=== PATIENT | female | born 1965 | race Caucasian/White ===

== ENCOUNTER 2017-10-22 19:35 | Emergency (ER) | payer MEDICARE, MEDICAID ==
--- NOTE | 2017-10-22 19:47 | Emergency Department Record ---
History of Present Illness - General Chief Complaint: Fever Stated Complaint: FEVER Time Seen by Provider: 10/22/17 19:44 Source: Patient Mode of Arrival: Wheelchair Limitations: No limitations - History of Present Illness Initial Comments: The patient is here due to not feeling well for 4 days. She has had a low grade fever, runny nose, mild nasal congestion and a mild dry cough with a BLAIR. She denies any ST, ear pain, SOB, or sputum production. The patient did not receive a flu shot this year. She denies any nausea, vomiting, diarrhea, dysuria,CP or AP. MD Complaint: Fever, Malaise, Weakness Onset/Timin -: Days(s) Maximum Temperature: 103 F Temperature Source: Oral Associated Symptoms: Chills, Headache, Nasal congestion, Rhinorrhea Treatments Prior to Arrival: Ibuprofen - Related Data Previous Rx's Medication Instructions Recorded Doxycycline Monohydrate [Mondoxyne 100 mg PO BID #20 capsule 10/22/17 Nl] Allergies Allergy/AdvReac Type Severity Reaction Status Date / Time prochlorperazine edisylate Allergy DIZZINESS Verified 10/22/17 19:44 [From Compazine] prochlorperazine maleate Allergy DIZZINESS Verified 10/22/17 19:44 [From Compazine] vancomycin Allergy HIVES Verified 10/22/17 19:44 Travel Screening - Travel/Exposure Within Last 30 Days Have you traveled within the last 30 days?: No - Travel/Exposure Within Last Year Have you traveled outside the [place] in the last year?: No - Additonal Travel Details Have you been exposed to anyone with a communicable illness?: No Review of Systems Constitutional: Reports: Fever, Malaise. Denies: Chills Eyes: Denies: Eye discharge ENT: Reports: Congestion Respiratory: Reports: Cough. Denies: Dyspnea Past Medical History - SOCIAL HISTORY Smoking Status: Former smoker Alcohol Use: Rare Drug Use: None - RESPIRATORY Hx Respiratory Disorders: No - CARDIOVASCULAR Hx Cardio Disorders: Yes Hx Hypertension: Yes Comment:: high cholesterol - NEURO Hx Neuro Disorders: Yes Hx Neuropathy: Yes - GI Hx GI Disorders: No - Hx Genitourinary Disorders: Yes Hx Bladder Problem: Yes - ENDOCRINE Hx Endocrine Disorders: Yes Hx Diabetes: Yes Hx Thyroid Disease: No - MUSCULOSKELETAL Hx Musculoskeletal Disorders: Yes Hx Arthritis: Yes Hx Back Injury: Yes (bulging disk) Hx Fibromyalgia: Yes Hx Osteoporosis: Yes - PSYCH Hx Psych Problems: Yes Hx Depression: Yes - HEMATOLOGY/ONCOLOGY Hx Hematology/Oncology Disorders: No Family Medical History Any Significant Family History?: Yes Hx Cancer: Mother, Brother/Sister Hx Diabetes: Mother, Brother/Sister Hx HTN: Father, Mother Hx Kidney Disease: Father Hx Stroke: Mother Physical Exam - General General Appearance: Alert, Oriented x3, Cooperative, No acute distress - Head Head exam: Atraumatic, Normocephalic, Normal inspection - Eye Eye exam: Normal appearance, PERRL - ENT ENT exam: Normal exam, Mucous membranes moist, Normal external ear exam, Normal orophraynx, TM's normal bilaterally Throat exam: Normal inspection. negative: Tonsillar erythema, Tonsillar exudate - Neck Neck exam: Normal inspection, Full ROM. negative: Tenderness - Respiratory Respiratory exam: Normal lung sounds bilaterally. negative: Respiratory distress - Cardiovascular Cardiovascular Exam: Regular rate, Normal rhythm, Normal heart sounds - GI/Abdominal GI/Abdominal exam: Soft, Normal bowel sounds. negative: Tenderness - Extremities Extremities exam: Normal inspection, Full ROM, Normal capillary refill. negative: Tenderness - Neurological Neurological exam: Alert, Normal gait. negative: Abnormal gait, Motor sensory deficit Course Vital Signs 10/22/17 19:39 Temperature 100.4 F H Pulse Rate 121 H Respiratory 20 Rate Blood Pressure 116/75 Pulse Ox 97 - Reevaluation(s) Reevaluation #1: The patient is doing very well at this time and appears very healthy and nontoxic. Her CXR and lab work do not demonstrate any serious infection. We will discharge the patient on Doxycycline and Tylenol and have her F/U with her PCP next week for recheck. 10/22/17 20:44 10/22/17 20:52 Medical Decision Making - Data Complexity MDM Data: Labs Ordered and/or Reviewed, X-Ray Ordered and/or Reviewed - Lab Data Result diagrams: 10/22/17 20:05 10/22/17 20:05 - Radiology Data Radiology results: Report reviewed (CXR: Neg.) Disposition Disposition: Discharge Clinical Impression: Sinusitis Qualifiers: Sinusitis location: unspecified location Chronicity: acute Recurrence: not specified as recurrent Qualified Code(s): J01.90 - Acute sinusitis, unspecified Disposition: Home, Self-Care Condition: (2) Stable Instructions: Fever in Adults (ED), Rhinosinusitis (ED) Additional Instructions: Please drink plenty of fluids and watch your sugar intake. Please alternate Tylenol with Motrin every 4-6 hours for fever. Please continue the Doxycyline as directed. Follow up with your PCP next week if not better and return to the ER for any worsening symptoms or high fever. Prescriptions: Doxycycline Monohydrate [Mondoxyne Nl] 100 mg PO BID #20 capsule Forms: Patient Portal Access Time of Disposition: 20:49 Quality - Quality Measures Quality Measures: N/A - Blood Pressure Screening View Details: Yes Does Patient Have Any of the Following: No Blood Pressure Classification: Normal BP Reading Systolic Measurement: 116 Diastolic Measurement: 75 Screening for High Blood Pressure: < Normal BP, F/U Not Required > [G8783]
[2017-10-22] MEDS ORDERED: ACETAMINOPHEN 325 MG TAB PO ONE (19:50)
[2017-10-22 20:11] LABS: INFLUENZA A NEGATIVE (NEGATIVE); INFLUENZA B NEGATIVE (NEGATIVE)
[2017-10-22 20:15] LABS: HEMATOCRIT 39.9 % (35.0-47.0); HEMOGLOBIN 12.9 gm/dl (11.6-16.0); MEAN CORPUSCULAR HEMOGLOBIN 27.8 pg (27-33); MEAN CORPUSCULAR HGB CONC 32.3 g/dl (32-36); MEAN PLATELET VOLUME 9.8 fl (7.4-10.4); PLATELET COUNT 215 K/uL (130-400); RED BLOOD COUNT 4.64 M/uL (3.80-5.40); RED CELL DISTRIBUTION WIDTH 14.6 % (11.5-14.5); WHITE BLOOD COUNT W/O DIFF 11.3 K/uL (4.2-12.2)
[2017-10-22] MEDS ORDERED: DOXYCYCLINE HYCLATE 100 MG CAPSULE PO ONE (20:25)
[2017-10-22 20:29] LABS: BLOOD UREA NITROGEN 9 mg/dL (6-20); CREATININE 0.5 mg/dL (0.5-0.9); EST GLOMERULAR FILTRATION RATE > 60 mL/min
[2017-10-22 20:30] LABS: TOTAL PROTEIN 7.4 g/dL (6.6-8.7)
[2017-10-22 20:32] LABS: GLUCOSE,RANDOM 279 mg/dL (74-109)
[2017-10-22 20:35] LABS: ALB/GLOB RATIO 1.1 (1.1-1.8); ALBUMIN 3.8 g/dL (4.0-5.0); ALKALINE PHOSPHATASE 102 U/L (35-104); ALT/SGPT 31 U/L (<33); AST/SGOT 29 U/L (10.0-35.0)
--- NOTE | 2017-10-23 08:28 | RADIOLOGY REPORT ---
EXAM: CHEST 2 VIEWS HISTORY: FEVER FOR THE PAST FOUR DAYS WITH GREENISH NASAL DISCHARGE AND SINUS PRESSURE. TECHNIQUE: PA and lateral upright views of the chest were obtained. COMPARISON: July 08, 2010. FINDINGS: The heart, mediastinum, and pulmonary vasculature are normal. The lungs are clear. There is no pneumothorax or effusion. The bones appear intact. IMPRESSION: NO ACUTE CHEST PATHOLOGY. JOB NUMBER: [id number] MTDD
== END 2017-10-22 20:56 | disposition home or self-care (01) ==
LOC: ER 19:35
DX: J01.90 Acute sinusitis, unspecified (principal); R50.81 Fever presenting with conditions classified elsewhere; R05 Cough; R51 Headache; R53.1 Weakness
CPT/HCPCS: 71020; 80053; 85027; 86140; 87400; 99283; 99284

== ENCOUNTER 2017-11-22 12:16 | Emergency (ER) | payer MEDICARE, MEDICAID ==
--- NOTE | 2017-11-22 13:47 | Emergency Department Record ---
History of Present Illness - General Chief Complaint: Back Pain/Injury Stated Complaint: BACK PAIN Time Seen by Provider: 11/22/17 13:25 Source: Patient - History of Present Illness Initial Comments: The patient states her chronic low back pain has been increased in severity for the past two weeks. She has known L4-L5 disc herniation which has been for years , for which she has used a cane for ambulation routinely. Her left leg chronically feels weak, her neuropathy in both legs is chronic, and her ulcers on both big toes which have been cared for at wound clinics, have been shrinking in size and she feels are close to resolving. The patient has been having a fever also for the past 1 week. She states she had been taking antibiotics which finished about 2 weeks ago which were for sinusitis. She started with thick green nasal discharge which resolved while on the antibiotics , and then the green thick sputum returned after the antibiotics stopped. Her cheeks bilaterally have uncomfortable pressure along with post-nasal drip. She denies sore throat, cough, cp, liu, ap, or bales. She has had no procedures in her low back, the last recent MRI was a few years ago. She is seeing Carlene GARCIA here and is trying to get a repeat MRI and an appointment with the neurologist. She states she does not want surgery on her back because disc herniation runs in her family and they all have had multiple surgeries which she wants to avoid. She has been taking tylenol and ibuprofen for the pain, but has not had ibuprofen in over 8 hours. MD Complaint: Back pain Onset/Timin -: Week(s) Similar Symptoms Previously: Yes Radiation: None Improves With: None Worsens With: Deep breaths/cough, Movement, Walking, Other Context: Unknown Associated Symptoms: Difficulty walking, Other Treatments Prior to Arrival: Acetaminophen Treatment Prior to Arrival Comment:: 1500mg - Related Data Previous Rx's Medication Instructions Recorded Doxycycline Monohydrate [Mondoxyne 100 mg PO BID #20 capsule 10/22/17 Nl] Diazepam [Valium] 10 mg PO TID #20 tab 11/22/17 Levofloxacin [Levaquin Tab] 500 mg PO DAILY #21 tab 11/22/17 Tramadol HCl [Ultram] 50 mg PO Q8H #20 tab 11/22/17 Allergies Allergy/AdvReac Type Severity Reaction Status Date / Time prochlorperazine edisylate Allergy DIZZINESS Verified 11/22/17 12:52 [From Compazine] prochlorperazine maleate Allergy DIZZINESS Verified 11/22/17 12:52 [From Compazine] vancomycin Allergy HIVES Verified 11/22/17 12:52 Travel Screening - Travel/Exposure Within Last 30 Days Have you traveled within the last 30 days?: No - Travel/Exposure Within Last Year Have you traveled outside the [place] in the last year?: No - Additonal Travel Details Have you been exposed to anyone with a communicable illness?: No Review of Systems Reviewed: No additional complaints except as noted below Constitutional: Reports: As per HPI. Denies: Chills, Fever, Malaise, Night sweats, Weakness, Weight change Eyes: Reports: As per HPI. Denies: Eye discharge, Eye pain, Photophobia, Vision change ENT: Reports: As per HPI. Denies: Congestion, Dental pain, Ear pain, Epistaxis , Hearing loss, Throat pain Respiratory: Reports: As per HPI. Denies: Cough, Dyspnea, Hemoptysis, Stridor, Wheezes Cardiovascular: Reports: As per HPI. Denies: Arrhythmia, Chest pain, Dyspnea on exertion, Edema, Murmurs, Orthopnea, Palpitations, Paroxysmal nocturnal dyspnea, Rheumatic Fever, Syncope Endocrine: Reports: As per HPI. Denies: Fatigue, Heat or cold intolerance, Polydipsia, Polyuria Gastrointestinal: Reports: As per HPI. Denies: Abdominal pain, Constipation, Diarrhea, Hematemesis, Hematochezia, Melena, Nausea, Vomiting Genitourinary: Reports: As per HPI. Denies: Abnormal menses, Discharge, Dyspareunia, Dysuria, Frequency, Hematuria, Incontinence, Retention, Urgency Musculoskeletal: Reports: As per HPI. Denies: Arthralgia, Back pain, Gout, Joint swelling, Myalgia, Neck pain Skin: Reports: As per HPI. Denies: Bruising, Change in color, Change in hair/ nails, Lesions, Pruritus, Rash Neurological: Reports: As per HPI. Denies: Abnormal gait, Confusion, Headache, Numbness, Paresthesias, Seizure, Tingling, Tremors, Vertigo, Weakness Psychiatric: Reports: As per HPI. Denies: Anxiety, Auditory hallucinations, Depression, Homicidal thoughts, Suicidal thoughts, Visual hallucinations Hematological/Lymphatic: Reports: As per HPI. Denies: Anemia, Blood Clots, Easy bleeding, Easy bruising, Swollen glands Past Medical History - SOCIAL HISTORY Smoking Status: Former smoker Alcohol Use: None Drug Use: None - RESPIRATORY Hx Respiratory Disorders: No - CARDIOVASCULAR Hx Cardio Disorders: Yes Hx Hypertension: Yes Comment:: high cholesterol - NEURO Hx Neuro Disorders: Yes Hx Neuropathy: Yes - GI Hx GI Disorders: No - Hx Genitourinary Disorders: Yes Hx Bladder Problem: Yes - ENDOCRINE Hx Endocrine Disorders: Yes Hx Diabetes: Yes Hx Thyroid Disease: No - MUSCULOSKELETAL Hx Musculoskeletal Disorders: Yes Hx Arthritis: Yes Hx Back Injury: Yes (bulging disk) Hx Fibromyalgia: Yes Hx Osteoporosis: Yes - PSYCH Hx Psych Problems: Yes Hx Depression: Yes - HEMATOLOGY/ONCOLOGY Hx Hematology/Oncology Disorders: No Family Medical History Any Significant Family History?: No Hx Cancer: Mother, Brother/Sister Hx Diabetes: Mother, Brother/Sister Hx HTN: Father, Mother Hx Kidney Disease: Father Hx Stroke: Mother Physical Exam - General General Appearance: Alert, Oriented x3, Cooperative, Moderate distress, Other ( morbidly obese ) - Head Head exam: Normal inspection, Other (pressure over maxillary sinuses on percussion) - Eye Eye exam: Normal appearance, PERRL Pupils: Normal accommodation - ENT ENT exam: Normal exam, Mucous membranes moist, Normal external ear exam, Normal orophraynx, TM's normal bilaterally Ear exam: Normal external inspection. negative: External canal tenderness Nasal Exam: Normal inspection, Sinus tenderness (bilateral maxillary). negative : Discharge Mouth exam: Normal external inspection, Tongue normal Teeth exam: Normal inspection. negative: Dental caries Throat exam: Normal inspection. negative: Tonsillar erythema, Tonsillar exudate - Neck Neck exam: Normal inspection, Full ROM. negative: Tenderness - Respiratory Respiratory exam: Normal lung sounds bilaterally. negative: Respiratory distress - Cardiovascular Cardiovascular Exam: Regular rate, Normal rhythm, Normal heart sounds - GI/Abdominal GI/Abdominal exam: Soft, Normal bowel sounds. negative: Tenderness - Rectal Rectal exam: Deferred - exam: Deferred - Extremities Extremities exam: Normal inspection, Full ROM, Normal capillary refill. negative: Tenderness - Back Back exam: Reports: Normal inspection, Full ROM, Tenderness (tender at L4L5 level on palpation ). Denies: CVA tenderness (R), CVA tenderness (L), Muscle spasm, Rash noted - Neurological Neurological exam: Alert, CN II-XII intact, Normal gait, Oriented X3, Reflexes normal, Other (neuropathy below knees bilateral and chronic.) - Psychiatric Psychiatric exam: Normal affect, Normal mood - Skin Skin exam: Dry, Intact, Normal color, Warm Course Vital Signs 11/22/17 12:34 Temperature 98.1 F Pulse Rate 97 H Respiratory 20 Rate Blood Pressure 108/70 Pulse Ox 70 L - Reevaluation(s) Reevaluation #1: Not much improvement after norflex and toradol injection. Patient will try valium at bedtime to help with sleep, spasm, and ultram for pain. She was cautioned about falling while on pain meds and muscle relaxants. She will be given levaquin for sinus infection and equivocally abnormal UA. She has follow up with Carlene GARCIA in office 11/22/17 14:40 Medical Decision Making - Management Options MDM Management: No Additional Work-up Planned - Data Complexity MDM Data: Labs Ordered and/or Reviewed Disposition Disposition: Discharge Clinical Impression: Sinusitis, acute, maxillary Qualifiers: Recurrence: recurrent Qualified Code(s): J01.01 - Acute recurrent maxillary sinusitis Chronic low back pain with left-sided sciatica Qualifiers: Back pain laterality: left Qualified Code(s): M54.42 - Lumbago with sciatica, left side; G89.29 - Other chronic pain; G89.29 - Other chronic pain Disposition: Home, Self-Care Condition: (2) Stable Instructions: Low Back Strain (ED), Chronic Back Pain (ED), Sinusitis (ED) Additional Instructions: Continue present meds as before. Take antibiotics as directed untll gone. Valium as directed IF NEEDED for muscle spasm pain. May cause drowsiness. Ultram as directed IF NEEDED for pain. Follow up with JOSE Richardson as instructed. Prescriptions: Diazepam [Valium] 10 mg PO TID #20 tab Levofloxacin [Levaquin Tab] 500 mg PO DAILY #21 tab Tramadol HCl [Ultram] 50 mg PO Q8H #20 tab Quality - Quality Measures Quality Measures: N/A - Blood Pressure Screening Does Patient Have Any of the Following: No Blood Pressure Classification: Normal BP Reading Systolic Measurement: 108 Diastolic Measurement: 70 Screening for High Blood Pressure: < Normal BP, F/U Not Required > [G8783]
[2017-11-22] MEDS ORDERED: KETOROLAC 30 MG/ML VIAL IM ONE (13:58)
[2017-11-22] MEDS ORDERED: ORPHENADRINE CITRATE 60MG/2ML VIAL IM ONE (13:58)
[2017-11-22 14:01] LABS: URINE APPEARANCE CLEAR; URINE BILIRUBIN NEGATIVE (NEGATIVE); URINE BLOOD NEGATIVE (NEGATIVE); URINE COLOR YELLOW; URINE GLUCOSE (UA) NEGATIVE (NEGATIVE); URINE KETONE NEGATIVE (NEGATIVE); URINE LEUKOCYTE ESTERASE TRACE (NEGATIVE); URINE NITRITE NEGATIVE (NEGATIVE); URINE PROTEIN NEGATIVE (NEGATIVE); URINE UROBILINOGEN 0.2 E.U./dL (0.20 - 1.00)
[2017-11-22 14:11] LABS: AMPHETAMINE SCREEN URINE NOT DETECTED; BARBITURATE SCREEN URINE NOT DETECTED; BENZODIAZEPINE SCREEN URINE NOT DETECTED; COCAINE SCREEN URINE NOT DETECTED; METHADONE SCREEN URINE NOT DETECTED; METHAMPHETAMINE SCREEN NOT DETECTED; OPIATE SCREEN URINE NOT DETECTED; OXYCODONE SCREEN URINE NOT DETECTED; PHENCYCLIDINE SCREEN URINE NOT DETECTED; PROPOXYPHENE SCREEN URINE NOT DETECTED; THC SCREEN URINE NOT DETECTED; TRICYCLIC ANTIDEPRESSANT SCRN DETECTED; URINE BACTERIA FEW; URINE RBC 0 - 2 (NONE SEEN); URINE WBC 0 - 2 (0-2/hpf)
== END 2017-11-22 15:48 | disposition home or self-care (01) ==
LOC: ER 12:16
DX: G89.29 Other chronic pain (principal); M51.17 Intervertebral disc disorders with radiculopathy, lumbosacral region; J01.01 Acute recurrent maxillary sinusitis; R26.2 Difficulty in walking, not elsewhere classified; E11.9 Type 2 diabetes mellitus without complications; I10 Essential (primary) hypertension; Z79.899 Other long term (current) drug therapy; Z87.891 Personal history of nicotine dependence
CPT/HCPCS: 80053; 80061; 80305; 81001; 82306; 84443; 96372; 99283; 99284; J1885; J2360

== ENCOUNTER 2018-01-27 08:02 | Emergency (ER) | payer MEDICARE, MEDICAID ==
[2018-01-27] MEDS ORDERED: MORPHINE SULFATE 5 MG/ML PFS IVP ONE (08:14)
[2018-01-27] MEDS ORDERED: 0.9 % SODIUM CHLORIDE 1000ML 1,000 ML IV ONE (08:14)
--- NOTE | 2018-01-27 08:16 | Emergency Department Record ---
History of Present Illness - General Chief Complaint: Fall Injury Stated Complaint: FALL/BACK PAIN Time Seen by Provider: 01/27/18 08:07 Source: Patient Mode of Arrival: Ambulatory Limitations: No limitations - History of Present Illness Initial Comments: 52 yo female presents after a fall. The patient got up to go the bathroom this morning. She states her R leg gave out on her and she fell. She complains of pain in the lumbar area and weakness in the legs. She has worsening chronic lumbar pain with known significant disc disease. She is scheduled for an MRI in a week and a follow up with a NS (Marly). She has chronic neuropathy. No head or neck injury today. PCP is Carlene An. MRI 04/2014: 1. Large Central disc extrusion T12/L1 extending 10mm cephalad, severe central canal stenosis with the thecal sac only measuring 3mm in AP with significant flattening of the distal cord/cauda equina. Neurosurgical consultation recommended. 2. severe central canal stenosis at L2/3 and L3/4 3. L4/5 moderal canal stenosis 4. L5/S1 disc protrusion effaces L lateral recess displaces left S1 nerve root No history of back surgery or neurosurgical follow up She does report urinary incontinence that has been ongoing for about 2 years and is unchanged She reports the neuropathy of the feet has been several years as well The drop foot has been present on the right as well since 2013 She uses a cane on a good day and a wheelie walker on a bad day. She does report some subjective fevers in the last few days. MD Complaint: Fall -: Hour(s) (3) Fall From: Standing When Fall Occurred: 1-3 hours [employer] Fall Witnessed: No Place Fall Occurred: Home Loss of Consciousness: None Prolonged Down Time?: No Symptoms Prior to Fall: Other (Leg gave) - Related Data Home Medications Medication Instructions Recorded Confirmed Last Taken Ergocalciferol (Vitamin D2) 50,000 unit PO WEEKLY 01/27/18 01/27/18 1 Day Ago [Vitamin D2] ~01/26/18 Flaxseed Oil 1,000 mg PO DAILY 01/27/18 01/27/18 1 Day Ago ~01/26/18 Multivitamin [Multiple Vitamins] 1 each PO DAILY 01/27/18 01/27/18 1 Day Ago ~01/26/18 Niacin 500 mg PO DAILY 01/27/18 01/27/18 1 Day Ago ~01/26/18 [place]-3/Dha/Epa/Fish Oil [Fish Oil 1 each PO DAILY 01/27/18 01/27/18 1 Day Ago 1,000 mg Softgel] ~01/26/18 Allergies Allergy/AdvReac Type Severity Reaction Status Date / Time prochlorperazine edisylate Allergy DIZZINESS Verified 01/27/18 08:08 [From Compazine] prochlorperazine maleate Allergy DIZZINESS Verified 01/27/18 08:08 [From Compazine] vancomycin Allergy HIVES Verified 01/27/18 08:08 Review of Systems Constitutional: Reports: Chills, Fever (subjective on off a couple days). Denies: Malaise, Night sweats, Weakness Eyes: Denies: Eye discharge, Eye pain, Photophobia, Vision change ENT: Denies: Congestion, Throat pain Respiratory: Denies: Cough Cardiovascular: Denies: Chest pain, Palpitations, Syncope Endocrine: Denies: Fatigue Gastrointestinal: Denies: Abdominal pain, Diarrhea, Nausea, Vomiting Genitourinary: Denies: Dysuria, Urgency Musculoskeletal: Reports: Back pain, Myalgia. Denies: Arthralgia, Joint swelling, Neck pain Skin: Denies: Bruising, Change in color, Rash Neurological: Reports: Abnormal gait, Numbness, Weakness. Denies: Confusion, Headache, Vertigo Psychiatric: Denies: Anxiety Hematological/Lymphatic: Denies: Blood Clots, Easy bleeding, Easy bruising, Swollen glands Past Medical History - SOCIAL HISTORY Smoking Status: Former smoker Drug Use: None - RESPIRATORY Hx Respiratory Disorders: No - CARDIOVASCULAR Hx Cardio Disorders: Yes Hx Hypertension: Yes Comment:: high cholesterol - NEURO Hx Neuro Disorders: Yes Hx Neuropathy: Yes - GI Hx GI Disorders: No - Hx Genitourinary Disorders: Yes Hx Bladder Problem: Yes - ENDOCRINE Hx Endocrine Disorders: Yes Hx Diabetes: Yes Hx Thyroid Disease: No - MUSCULOSKELETAL Hx Musculoskeletal Disorders: Yes Hx Arthritis: Yes Hx Back Injury: Yes (bulging disk) Hx Fibromyalgia: Yes Hx Osteoporosis: Yes - PSYCH Hx Psych Problems: Yes Hx Depression: Yes - HEMATOLOGY/ONCOLOGY Hx Hematology/Oncology Disorders: No Family Medical History Hx Cancer: Mother, Brother/Sister Hx Diabetes: Mother, Brother/Sister Hx HTN: Father, Mother Hx Kidney Disease: Father Hx Stroke: Mother Physical Exam - General General Appearance: Alert, Oriented x3, Cooperative, No acute distress Limitations: No limitations - Head Head exam: Atraumatic, Normal inspection - Eye Eye exam: Normal appearance, PERRL. negative: Conjunctival injection, Scleral icterus - ENT ENT exam: Normal exam, Mucous membranes moist Ear exam: Normal external inspection Nasal Exam: Normal inspection Mouth exam: Normal external inspection Teeth exam: Normal inspection Throat exam: Normal inspection - Neck Neck exam: Normal inspection, Full ROM. negative: Tenderness - Respiratory Respiratory exam: Normal lung sounds bilaterally. negative: Respiratory distress - Cardiovascular Cardiovascular Exam: Regular rate, Normal rhythm, Normal heart sounds Peripheral Pulses: 2+: Radial (R), Radial (L) - GI/Abdominal GI/Abdominal exam: Soft. negative: Tenderness - Rectal Rectal exam: Deferred - exam: Deferred - Extremities Extremities exam: Pedal edema. negative: Full ROM - Back Back exam: Reports: Paraspinal tenderness, Tenderness, Vertebral tenderness - Neurological Neurological exam: Abnormal gait, Alert, Motor sensory deficit (Sensation greatly diminished bilater feet starting at the ankle, unable to raise either leg off the bed due to pain, RIGHT: foot plantar flexion intact, dorsiflexion unable. LEFT dorsi and plantar flexion intact.), Oriented X3. negative: Altered, Normal gait - Psychiatric Psychiatric exam: Normal affect, Normal mood - Skin Skin exam: Dry, Intact, Normal color, Warm Course - Reevaluation(s) Reevaluation #1: The labs were reviewed The CBC demonstrated a WBC count of 14.5 No acute changes on the Coag's of BMP UA ordered 01/27/18 09:53 The radiologist called with the report The patient has very extensive degenerative changes throughout the entire lumbar spine There are findings of erosion that is concerning for infection of the L1-L2 interspace She has severe multi level narrowing as well. Cultures, sed rate and CRP ordered She was informed transfer for MRI will be required She is scheduled to see Dr Luke after the outpatient MRI so [facility] will be contacted. 01/27/18 10:13 ESR is 40 CRP is 9.7 UA is pending 01/27/18 10:36 UA is N negative, trace LE, 3-5 WBC with +4 Bacteria. 01/27/18 10:40 Through [facility] at [facility] Dr Jain accepts the patient ED to ED transfer for emergent MRI to rule out spinal infection 01/27/18 10:41 Medical Decision Making - Lab Data Result diagrams: 01/27/18 08:25 01/27/18 08:25 Disposition Disposition: Transfer Clinical Impression: Fall, Spinal stenosis, Elevated C-reactive protein, Elevated sed rate Disposition: Acute Care Hospital Transfer Transfer To: [facility] Reason For Transfer: Emergent MRI Accepting Physician: Susy Time Discussed w/Accepting Physician: 10:37 Forms: Patient Portal Access Time of Disposition: 10:42 Quality - Quality Measures Quality Measures: N/A - Blood Pressure Screening Does Patient Have Any of the Following: No Blood Pressure Classification: Normal BP Reading Systolic Measurement: 114 Diastolic Measurement: 64 Screening for High Blood Pressure: < Normal BP, F/U Not Required > [G8783]
[2018-01-27 08:33] LABS: HEMATOCRIT 37.9 % (35.0-47.0); HEMOGLOBIN 11.6 gm/dl (11.6-16.0); MEAN CORPUSCULAR HGB CONC 30.6 g/dl (32-36); MEAN PLATELET VOLUME 8.9 fl (7.4-10.4); PLATELET COUNT 375 K/uL (130-400); RED BLOOD COUNT 4.46 M/uL (3.80-5.40); RED CELL DISTRIBUTION WIDTH 15.6 % (11.5-14.5); WHITE BLOOD COUNT W/O DIFF 15.4 K/uL (4.2-12.2)
[2018-01-27 08:52] LABS: BLOOD UREA NITROGEN 10 mg/dL (6-20); CREATININE 0.3 mg/dL (0.5-0.9); EST GLOMERULAR FILTRATION RATE > 60 mL/min
[2018-01-27 08:53] LABS: INR 1.1; PARTIAL THROMBOPLASTIN TIME 27.7 SECONDS (24.5-39.1); PROTHROMBIN TIME (PATIENT) 11.4 SECONDS (9.5-12.1)
[2018-01-27 08:54] LABS: GLUCOSE,RANDOM 135 mg/dL (74-109)
[2018-01-27 10:08] LABS: URINE APPEARANCE CLEAR; URINE BILIRUBIN NEGATIVE (NEGATIVE); URINE BLOOD NEGATIVE (NEGATIVE); URINE COLOR YELLOW; URINE GLUCOSE (UA) NEGATIVE (NEGATIVE); URINE KETONE TRACE (NEGATIVE); URINE LEUKOCYTE ESTERASE TRACE (NEGATIVE); URINE NITRITE NEGATIVE (NEGATIVE); URINE PROTEIN NEGATIVE (NEGATIVE); URINE UROBILINOGEN 0.2 E.U./dL (0.20 - 1.00)
[2018-01-27 10:22] LABS: URINE BACTERIA 4+
[2018-01-27] MEDS ORDERED: ACETAMINOPHEN 1,000 MG/100 ML BTL IVPB ONE (10:30)
--- NOTE | 2018-01-27 21:33 | CT SCAN REPORT ---
EXAM: CT SCAN LUMBAR SPINE WO CONTRAST HISTORY: PATIENT FELL WITH PAIN AND LEG WEAKNESS, KNOWN DISC DISEASE. HAS LUMBAR MRI SCHEDULED FOR 02/05/18. TECHNIQUE: Axial CT scan of the lumbar spine performed with images beginning at the level of the T9 vertebra and extending down into the lower sacrum. No contrast was utilized. Postprocessing on an independent workstation was performed with 3D volume-rendered as well as 2D multiplanar reformatted series obtained. COMPARISON: No prior lumbar CT but comparison is made with a lumbar spine plain -film series of 06/01/12. Comparison is also made with a lumbar MRI dated 04/28/14. 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 This was not included on the prior lumbar MRI that did not extend this far superiorly into the thoracic region to include the right adrenal. There appears to be prominent distention of the urinary bladder on the lower images. There is some mild compression of the inferior endplate of the body of L1, which is new compared to the prior lumbar MRI of 04/28/14 and prior lumbar plain -film series of 06/01/12. However, in addition, there appears to be some erosion of the opposing vertebral endplates at both L1 and L2 at this interspace level and there is some prominent soft tissue density surrounding the interspace blurring the psoas margins and findings are quite suspicious for disc space infection at this level, perhaps with a pathologic fracture through the inferior aspect of the body of L1. Follow-up MRI with contrast suggested for further evaluation. Additional findings at the various interspaces are as detailed below. T9-10: Prominent spurring anterior at the interspace. No definite focal disc herniation or spinal stenosis evident at this level. T10-11: Narrowing of the interspaces and hypertrophic spurring anteriorly. No definite focal disc herniation or spinal stenosis evident. T11-12: Narrowing of the interspace with hypertrophic spurring anteriorly. Facet joint arthropathy, particularly on the right. No definite focal disc herniation or stenosis evident. T12-L1: Large posterior spur, likely compressing the lower cord at this level and resulting in prominent central stenosis. Mild facet joint arthropathy at this level as well. Prominent spurring anteriorly. L1-2: As noted above, findings worrisome for disc space infection at this level with probably a pathologic compression fracture of the inferior endplate of the body of L1. Moderate posterior spurring at the interspace as well. Mild facet joint arthropathy. L2-3: Narrowing of the interspace with prominent spurring anteriorly but also posteriorly and moderate facet joint arthropathy. Bulging of the annulus as well. Associated central stenosis and some impingement on the inferior aspects of the L2 neural foramina bilaterally. Some ligamentum flavum hypertrophy at this level as well. L3-4: Narrowing of the interspace with hypertrophic spurring both anteriorly and posteriorly. Prominent facet joint arthropathy. Central stenosis as well as some foraminal stenosis bilaterally at this level. Some ligamentum flavum hypertrophy at well containing some calcification. L4-5: Degenerative disc disease with narrowing of the interspace. Advanced facet joint arthropathy. Ligamentum flavum hypertrophy. Generalized bulging of the annulus. Central stenosis and also bilateral foraminal stenosis. L5-S1: Narrowing of the interspace. Prominent posterior spur, particularly on the left with resulting left-sided foraminal stenosis. IMPRESSION: 1. FINDINGS AT THE L1-2 INTERSPACE WORRISOME FOR DISC SPACE INFECTION WITH ASSOCIATED PATHOLOGIC FRACTURE OF THE INFERIOR ENDPLATE OF THE BODY OF L1. 2. EXTENSIVE DEGENERATIVE CHANGES ELSEWHERE THROUGHOUT THE LUMBAR SPINE DETAILED ABOVE, RESULTING IN MULTIPLE LEVELS OF SPINAL STENOSIS, MOST MARKED AT THE T12-L1 LEVEL, L3-4, AND L4-5. PROMINENT LEFT-SIDED POSTERIOR SPUR AT THE LUMBOSACRAL LEVEL WELL. JOB NUMBER: [id number] MTDD
== END 2018-01-27 11:54 | disposition short-term general hospital (02) ==
LOC: ER 08:02
DX: M48.061 Spinal stenosis, lumbar region without neurogenic claudication (principal); R70.0 Elevated erythrocyte sedimentation rate; R79.82 Elevated C-reactive protein (CRP); R29.898 Other symptoms and signs involving the musculoskeletal system; I10 Essential (primary) hypertension; E11.9 Type 2 diabetes mellitus without complications; Z91.81 History of falling; Z87.891 Personal history of nicotine dependence
CPT/HCPCS: 72131; 80048; 81001; 85027; 85610; 85651; 85730; 86140; 96374; 96375; 99285; J7030